=== PATIENT | male | born 1975 | race Caucasian/White ===

== ENCOUNTER 2019-03-01 12:02 | Emergency (ER) | payer OTHER ==
[2019-03-01] MEDS ORDERED: TETANUS AND DIPHTHERIA TOXOID 0.5 ML DISP.SYRIN IM ONE (12:16)
[2019-03-01] MEDS ORDERED: EMTRICITABINE 200MG/TENOFOVIR 300MG PO ONE (12:16)
[2019-03-01] MEDS ORDERED: RALTEGRAVIR POTASSIUM 400 MG TAB PO ONE (12:16)
[2019-03-01 12:21] VITALS: BP 104/68; PULSE 92; TEMP 98.1; BMI 22.8
--- NOTE | 2019-03-01 12:27 | PDOC ---
Post Exposure HPI - General Chief Complaint: Blood/Body Fluid Exposure SJR Stated Complaint: NEEDLE STICK EXPOSURE Time Seen by Provider: 03/01/19 12:08 - History of Present Illness Initial Comments: 03/01/19 12:20 43yo male presents for evaluation of a needle stick. Pt was suturing in the OR today when he stuck himself to the L index finger. States the needle was dirty with the patients blood and went through the glove. States he milked the finger in order to get himself to bleed. Then he washed the finger with betadine and again scrubbed the finger. States the patient does not have a hx of HIV or hepatitis, he will send screening labs off the source patient when she is awake and can consent. Pt states he has had needle sticks in the past and has taken post exposure prophylaxis. Pt requesting prophylaxis today. PMHx: depression Meds: zoloft allergies: nkda surgeries: L parotidectomy Past History - Past Medical History Allergies/Adverse Reactions: Allergies Allergy/AdvReac Type Severity Reaction Status Date / Time No Known Allergies Allergy Verified 03/01/19 12:09 Home Medications: Ambulatory Orders Sertraline HCl [Zoloft] 100 mg PO DAILY #7 tablet 07/25/15 Finasteride 1 mg PO DAILY tablet 05/28/16 Anemia: No Asthma: No Cancer: No Cardiac Disorders: No CVA: No COPD: No CHF: No Dementia: No Diabetes: No GI Disorders: No Disorders: No HTN: No Hypercholesterolemia: No Liver Disease: No Seizures: No Thyroid Disease: No - Surgical History Abdominal Surgery: No Appendectomy: No Cardiac Surgery: No Cholecystectomy: No Lung Surgery: No Neurologic Surgery: No Orthopedic Surgery: No - Immunization History TDAP Vaccination: Yes (2013) Immunization Up to Date: Yes - Suicide/Smoking/Psychosocial Hx Smoking History: Never smoked Hx Alcohol Use: No Drug/Substance Use Hx: No Substance Use Type: None Hx Substance Use Treatment: No Review of Systems - Review of Systems Able to Perform ROS?: Yes Is the patient limited Frisian proficient: No Constitutional: No: Chills, Fever HEENTM: No: Eye Pain, Nose Pain Respiratory: No: Cough, Shortness of Breath Cardiac (ROS): No: Chest Pain, Lightheadedness, Palpitations ABD/GI: No: Diarrhea, Nausea, Vomiting, Abdominal cramping : No: Burning, Dysuria Musculoskeletal: No: Back Pain Integumentary: Yes: Other (L index finger needle stick). No: Rash Neurological: No: Headache, Numbness, Paresthesia, Ataxia All Other Systems: Reviewed and Negative *Physical Exam - Vital Signs 03/01/19 12:27 Selected Entries 03/01/19 12:07 Temperature 98.1 F Pulse Rate 92 H Respiratory 15 Rate Blood Pressure 104/68 Blood Pressure 80 Mean O2 Sat by Pulse 98 Oximetry (%) Weight 70.307 kg - Physical Exam General Appearance: Yes: Nourished, Appropriately Dressed. No: Apparent Distress HEENT: positive: EOMI, Normal Voice Neck: positive: Trachea midline Respiratory/Chest: positive: Lungs Clear, Normal Breath Sounds Cardiovascular: positive: Regular Rhythm, Regular Rate, S1, S2 Gastrointestinal/Abdominal: positive: Normal Bowel Sounds, Soft. negative: Guarding, Rebound, Tenderness Musculoskeletal: positive: Normal Inspection Extremity: positive: Normal Range of Motion, Other (ambulatory in the ED, L index finger without active bleeding from distal phalanx) Integumentary: positive: Normal Color, Dry, Warm, Other (no lacerations to L index finger) Neurologic: positive: Fully Oriented, Alert, Normal Mood/Affect, Other ( ambulatory with a steady gait) Medical Decision Making - Medical Decision Making 03/01/19 12:29 a/p: 43yo male with a needle stick with a suture needle in the L index finger - distal phalanx -pt cleaned the wound himself [employer] -pt requesting HIV and hepatitis testing along with PEP -will send HIV and hepatitis testing, pt will consent and send labs off the source patient -will treat with isentress and truvada -will update tetanus *DC/Admit/Observation/Transfer Diagnosis at time of Disposition: Employee exposure to body fluids - Discharge Dispostion Disposition: HOME Condition at time of disposition: Stable Decision to Admit order: No - Referrals Referrals: Deo Campos MD [Primary Care Provider] - - Patient Instructions Printed Discharge Instructions: How to Handle Body Fluid Exposure -- Healthcare Worker Additional Instructions: Please go to employee health for follow-up. Please take all medications as prescribed. Please follow up with your PMD. Please return to the ED with any further concerns or complaints. - Post Discharge Activity Forms/Work/School Notes: Back to Work
[2019-03-01] MEDS ORDERED: DIPHTH,PERTUSS(ACELL),TET 0.5 ML DISP.SYRIN IM ONE ×2 (12:30)
[2019-03-01] MEDS ORDERED: HIV POST EXPOSURE PROPHYLAXIS KIT PO ONE (12:30)
[2019-03-02 08:06] LABS: HBsAG SCREEN Negative (Negative)
== END 2019-03-01 13:00 | disposition home or self-care (01) ==
LOC: FER 12:02
PROC: 3E0234Z Introduction of Serum, Toxoid and Vaccine into Muscle, Percutaneous Approach (ICD-10-PCS; principal; 2019-03-01)
DX: S60.451A Superficial foreign body of left index finger, initial encounter (principal); W46.1XXA Contact with contaminated hypodermic needle, initial encounter; Y93.F9 Activity, other caregiving; Y92.234 Operating room of hospital as the place of occurrence of the external cause; Z77.21 Contact with and (suspected) exposure to potentially hazardous body fluids
CPT/HCPCS: 36415; 86317; 86706; 86803; 87340; 87389; 90715; 99282-25